=== PATIENT | male | born 2000 | race Caucasian/White ===

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

== ENCOUNTER → 2019-09-11 | Outpatient (REF) | payer BC ==
[~2019-09-11] MED LIST changes: -ZOFR20TA PO; +ZOFR4TAB14 PO; +ZOFR4TAB16 PO; -ZOFR4TAB3 PO
[2019-09-11 14:11] LABS: ALBUMIN 4.1 GM/DL (3.2-5.2); ALT/SGPT 190 U/L (12-78); BILIRUBIN,TOTAL 0.5 MG/DL (0.2-1.0); BLOOD UREA NITROGEN 13 MG/DL (7-18); CALCIUM LEVEL 9.6 MG/DL (8.5-10.1); CARBON DIOXIDE LEVEL 30 MEQ/L (21-32); CHLORIDE LEVEL 104 MEQ/L (98-107); CHOLESTEROL LEVEL 217 MG/DL (<200); CREATININE FOR GFR 1.04 MG/DL (0.70-1.30); FREE T4 1.29 NG/DL (0.78-1.33); GLUCOSE, FASTING 93 MG/DL (70-100); HDL CHOLESTEROL 31 MG/DL (>40); LDL CHOLESTEROL 113 MG/DL (<100); NON-HDL-C 186 MG/DL; POTASSIUM SERUM 4.5 MEQ/L (3.5-5.1); SODIUM LEVEL 140 MEQ/L (136-145); TOTAL PROTEIN 7.7 GM/DL (6.4-8.2); TRIGLYCERIDES LEVEL 365 MG/DL (<150)
== END ==
LOC: M SFHCPLAZ 11:45
PROVIDERS: ATTEND Physician Assistant
DX: Z00.00 Encounter for general adult medical examination without abnormal findings (principal); K76.0 Fatty (change of) liver, not elsewhere classified; Z13.1 Encounter for screening for diabetes mellitus; Z13.220 Encounter for screening for lipoid disorders

== ENCOUNTER → 2021-11-10 | Outpatient (REF) | payer BC, OTHER | LOC: M LAB REF 17:32 | PROVIDERS: ATTEND Physician Assistant | DX: R05.9 Cough, unspecified (principal) ==

== ENCOUNTER → 2024-02-20 | Outpatient (CLI) | payer BC | LOC: M RAD 07:36 | PROVIDERS: ATTEND Physician Assistant Medical | DX: R74.01 Elevation of levels of liver transaminase levels (principal) ==